=== PATIENT | male | born 1985 | race Hispanic/Latino ===

== ENCOUNTER 2016-08-18 17:46 | Emergency (ER) | payer OTHER ==
[~2016-08-18] VITALS: Ht 172.7 cm; Wt 152.0 kg
[~2016-08-18 17:46] MED LIST: AUGMENTIN875 MG PO; BENTYL10 MG PO; CYCLOBENZAPRINE10 MG PO; IBUPROFEN800 MG PO; MILLIPRED5 MG PO; MOTRIN800 MG PO; NAPROSYN500 MG PO; PROMETHAZINE HC25 M1 PO; TORADOL10 MG PO; TRAMADOL HCL50 MG PO; ZOFRAN ODT4 MG PO
[2016-08-18 18:41] LABS: HEMATOCRIT 47.4 % (38.0-50.0); MCH 28.1 PG (29.0-34.0); MCHC 32.9 G/DL (30.0-36.0); MCV 85.4 FL (86-99); MEAN PLAT.VOLUME 10.3 uM^3 (9.0-12.4); PLATELET COUNT 276 K/uL (156-360); RBC DIS.WIDTH-CV 14.2 % (11.8-14.6); RBC DIS.WIDTH-SD 44.8 % (39-53); RED BLOOD COUNT 5.55 M/uL (4.00-5.50); WHITE BLOOD COUNT 10.4 K/uL (4.1-10.2)
[2016-08-18 18:56] LABS: CHLORIDE 103 mEq/L (99-109); POTASSIUM 4.4 mEq/L (3.7-5.4)
[2016-08-18 18:57] LABS: SODIUM 140 mEq/L (136-147)
[2016-08-18 18:58] LABS: GLUCOSE 100 mg/dL (70-99)
[2016-08-18 19:00] LABS: ANION GAP 10 MEQ/L (2-14)
[2016-08-18 19:02] LABS: GFR ESTIMATE (CALCULATED) > 59 mL/min/
[2016-08-18 19:03] LABS: UREA NITROGEN (BUN) 16 mg/dL (9-23)
[2016-08-18 19:49] LABS: TROP-I INTERPRETATION NEGATIVE; TROPONIN-I 0.01 ng/mL (0.0-0.30)
[2016-08-18 20:29] LABS: ALKALINE PHOSPHATASE 116 IU/L (3-129)
[2016-08-18 20:31] LABS: DIRECT BILIRUBIN 0.3 mg/dL (0.0-0.3)
[2016-08-18 20:32] LABS: LIPASE 8 U/L (1.0-51.0)
[2016-08-18 22:16] LABS: TROP-I INTERPRETATION NEGATIVE; TROPONIN-I < 0.01 ng/mL (0.0-0.30)
[2016-08-18] MEDS ORDERED: AUGMENTIN875 MG PO (23:58)
[2016-08-19 00:06] VITALS: BP 130/71
== END 2016-08-19 00:06 | disposition home or self-care (01) ==
LOC: EME 17:46
PROVIDERS: Physician Assistant
DX: R07.9 Chest pain, unspecified (principal); H66.92 Otitis media, unspecified, left ear; G89.29 Other chronic pain; M54.9 Dorsalgia, unspecified; Z79.891 Long term (current) use of opiate analgesic
CPT/HCPCS: 71020; 71275; 80048; 80076; 83690; 84484; 85027; 85379; 93005; 99281; 99284

== ENCOUNTER → 2016-09-23 | Outpatient (CLI) | payer OTHER ==
[~2016-09-23] MED LIST changes: +LORTAB 10-3251 EACH PO
== END | disposition home or self-care (01) ==
LOC: CDC 08:40
DX: I49.9 Cardiac arrhythmia, unspecified (principal); M51.26 Other intervertebral disc displacement, lumbar region
CPT/HCPCS: 93000

== ENCOUNTER 2016-09-29 11:48 | Day surgery (SDC) | payer OTHER ==
[~2016-09-29] VITALS: Ht 172.7 cm; Wt 152.0 kg
[2016-09-29 12:18] VITALS: BP 134/86
[2016-09-29 18:53] VITALS: BP 170/90
[2016-09-29 19:20] VITALS: BP 143/77
[2016-09-29 20:00] VITALS: BP 127/78
== END 2016-09-29 20:20 | disposition home or self-care (01) ==
LOC: SDC
DX: M51.26 Other intervertebral disc displacement, lumbar region (principal); M51.17 Intervertebral disc disorders with radiculopathy, lumbosacral region; M51.16 Intervertebral disc disorders with radiculopathy, lumbar region; E66.01 Morbid (severe) obesity due to excess calories; Z68.43 Body mass index [BMI] 50.0-59.9, adult; J45.909 Unspecified asthma, uncomplicated
CPT/HCPCS: 72020; 76000; J0330; J0690; J1100; J1170; J2250; J2710; J2930; J3010; J3370; S0020

== ENCOUNTER 2017-10-27 09:46 | Emergency (ER) | payer OTHER ==
[~2017-10-27] VITALS: Ht 175.3 cm; Wt 164.0 kg
[2017-10-27 11:42] LABS: HEMATOCRIT 46.1 % (38.0-50.0); MCH 28.2 PG (29.0-34.0); MCHC 32.5 G/DL (30.0-36.0); MCV 86.8 FL (86-99); PLATELET COUNT 237 K/uL (156-360); RBC DIS.WIDTH-CV 13.9 % (11.8-14.6); RBC DIS.WIDTH-SD 43.9 % (39-53); RED BLOOD COUNT 5.31 M/uL (4.00-5.50); WHITE BLOOD COUNT 6.3 K/uL (4.1-10.2)
[2017-10-27 11:50] LABS: CHLORIDE 105 mEq/L (99-109); POTASSIUM 4.3 mEq/L (3.7-5.4); SODIUM 140 mEq/L (136-147)
[2017-10-27 11:52] LABS: GLUCOSE 90 mg/dL (70-99)
[2017-10-27 11:55] LABS: CREATININE 0.8 mg/dL (0.6-1.3); GFR ESTIMATE (CALCULATED) > 59 mL/min/ (58.99-99999)
[2017-10-27 11:56] LABS: UREA NITROGEN (BUN) 12 mg/dL (9-23)
[2017-10-27] MEDS ORDERED: FLEXERIL10 MG PO (12:56)
[2017-10-27] MEDS ORDERED: NAPROSYN500 MG PO (12:56)
[2017-10-27 13:33] VITALS: BP 138/75
== END 2017-10-27 13:33 | disposition home or self-care (01) ==
LOC: EME 09:46
PROVIDERS: Nurse Practitioner Family
DX: S09.90XA Unspecified injury of head, initial encounter (principal); S16.1XXA Strain of muscle, fascia and tendon at neck level, initial encounter; S20.219A Contusion of unspecified front wall of thorax, initial encounter; V68.0XXA Driver of heavy transport vehicle injured in noncollision transport accident in nontraffic accident, initial encounter; Y92.410 Unspecified street and highway as the place of occurrence of the external cause
CPT/HCPCS: 70450; 70498; 71046; 80048; 85027; 93005; 99281; 99284; J1885